=== PATIENT | female | born 1995 | race African-American/Black ===

== ENCOUNTER 2022-11-09 00:12 | Emergency (ER) | payer OTHER ==
[2022-11-09 00:32] VITALS: BP 110/78; PULSE 90; RESP 18; TEMP 98.4; BMI 41.0
[2022-11-09] MEDS ORDERED: ACETAMINOPHEN 500 MG TABLET (FP) PO ONE (02:27)
[2022-11-09] MEDS ORDERED: IBUPROFEN 600 MG TABLET (FP) PO ONE ×2 (02:27→02:57)
[2022-11-09] MEDS ORDERED: ACETAMINOPHEN 325 MG TABLET (FP) ONE (02:56)
== END 2022-11-09 03:58 | disposition home or self-care (01) ==
LOC: JER 00:12
DX: R51.9 Headache, unspecified (principal); V49.40XA Driver injured in collision with unspecified motor vehicles in traffic accident, initial encounter
CPT/HCPCS: 99283-25